=== PATIENT | female | born 1930 | race Caucasian/White ===

== ENCOUNTER 2017-04-18 18:25 | Emergency (ER) | payer MEDICARE ==
[2017-04-18 20:21] LABS: #Eosinphils 0.2 thou/uL (0.0-0.7); #Lymphocytes 1.4 thou/uL (1.20-3.40); #Monocytes 0.5 thou/uL (0.11-0.59); %Basophils 0.1 % (0.0-1.0); %Eosinophils 3.2 % (0.0-10.0); %Lymphocytes 19.7 % (21.0-51.0); %Monocytes 7.3 % (0.0-10.0); Hematocrit 43.2 % (36.0-47.0); Mean Platelet Volume 6.8 fL (7.4-10.4); Red Blood Cell (RBC) Count 4.66 mill/uL (4.20-5.40); White Blood Cell (WBC) Count 7.2 thou/uL (4.8-10.8)
[2017-04-18 20:27] LABS: PTT 27.2 SEC (22.9-36.1)
[2017-04-18 20:36] LABS: ALT (SGPT) 12 U/L (8-55); AST (SGOT) 26 U/L (5-34); Alkaline Phosphatase 94 U/L (40-150); Anion Gap 12 mmol/L (10-20); BUN (Urea Nitrogen) 16 mg/dL (9.8-20.1); Bilirubin, Total 0.3 mg/dL (0.2-1.2); Calc. Creatinine Clearance 0 mL/min (70-130); Calcium 9.8 mg/dL (7.8-10.44); Carbon Dioxide 30 mmol/L (23-31); Chloride 103 mmol/L (98-107); Estimated GFR-MDRD 83; Globulin 3.7 g/dL (2.4-3.5); Protein, Total 7.6 g/dL (6.0-8.3)
--- NOTE | 2017-04-18 20:44 | CT ---
CT OF BRAIN PERFORMED WITHOUT CONTRAST ENHANCEMENT: History: Head injury status post fall. Comparison: 02-02-17 FINDINGS: There is generalized ventricular and sulcal prominence. There is decreased attenuation of the perive ntricular white matter consistent with some chronic white matter change. There is no signs of interc erebral hemorrhage or extraaxial fluid collection. The mastoid air cells and visualized sinuses are clear. IMPRESSION: No acute intracranial abnormalities. POS: [facility]
--- NOTE | 2017-04-18 20:47 | RAD ---
PORTABLE CHEST: History: Fall. Comparison: 12-22-16 FINDINGS: Heart size is enlarged. There are atherosclerotic changes of the aorta and chronic lung changes. Hia wily hernia is present. The bones are demineralized. IMPRESSION: Cardiomegaly with chronic lung change. POS: [facility]
--- NOTE | 2017-04-18 20:58 | RAD ---
AP PELVIS: History: Fall with pelvic pain. Comparison: CT 12-22-16 FINDINGS: Deformity to the symphysis region appears old. There are no signs of any acute fractures of the bony pelvic ring. Vertebroplasty changes are noted in the lower lumbar spine. IMPRESSION: No evidence of any acute fracture. POS: [facility]
[2017-04-18 22:36] LABS: Bilirubin Negative (Negative); Blood, Urine Small (Negative); Glucose, Urine (Dipstick) Negative (Negative); Ketone, Urine Trace mg/dL (Negative); Nitrite Negative (Negative); Protein, Urine (Dipstick) Negative (Neg-Trace)
[2017-04-18 22:39] LABS: Bacteria/HPF Rare-Few HPF (None Seen); Hyaline Casts/LPF 0-3 HYALINE CAST LPF (0-3 Hyaline); WBC/HPF 0-3 HPF (0-3)
[2017-04-18] MEDS ORDERED: Adacel (T-DAP) 0.5 ML VIAL ONE (23:08)
== END 2017-04-18 23:55 | disposition home or self-care (01) ==
LOC: ERS 18:25
DX: S00.12XA Contusion of left eyelid and periocular area, initial encounter (principal); S40.012A Contusion of left shoulder, initial encounter; F03.90 Unspecified dementia, unspecified severity, without behavioral disturbance, psychotic disturbance, mood disturbance, and anxiety; M19.90 Unspecified osteoarthritis, unspecified site; Z86.73 Personal history of transient ischemic attack (TIA), and cerebral infarction without residual deficits; Z79.82 Long term (current) use of aspirin; W19.XXXA Unspecified fall, initial encounter
CPT/HCPCS: 70450; 71010; 72170; 80053; 81003; 81015; 85025; 85610; 85730; 87086; 90471; 90715; 93005; 96360; 96361

== ENCOUNTER 2017-09-03 06:10 | Emergency (ER) | payer MEDICARE ==
--- NOTE | 2017-09-03 07:47 | CT ---
PRELIMINARY REPORT/[facility]/EMERGENCY AFTER HOURS PROCEDURE: EXAM: CT Head Without Intravenous Contrast CLINICAL HISTORY: 87 years old, female; Injury or trauma; Fall; Initial encounter; Blunt trauma (contusions or hematoma s); Patient HX: Additional history obtained from ems, f87 presents to ed for fall. Ems reports unwitn essed fall and reports pt was found in the hallway at the assisted. Ems reports pt originally seth d she fell out of a chair and then later said she fell out of bed. Ems reports pt complained of right lower leg pain. Ems reports pt is not on blood thinners and reports HX of dementia. Pt reports she d oesn't remember falling. Pt reports right sided chest pain. TECHNIQUE: Axial computed tomography images of the head/brain without intravenous contrast. COMPARISON: No relevant prior studies available. FINDINGS: No definite acute skull fracture. Moderate fluid/opacity right maxillary and right frontal sinuses. Included paranasal sinuses otherwise appear essentially clear. No acute intracranial hemorrhage or mass effect. Ventricle size is normal for age. There is relatively symmetrical decreased attenuation in the periventricular white matter, likely fro m microvascular disease. No definite acute infarct by CT. MRI could be more sensitive/specific for an acute infarct if clinically indicated. IMPRESSION: No acute intracranial bleed or mass effect. Changes of microvascular disease. No definite acute infarct by CT, see above. Paranasal sinus findings as discussed above. Thank you for allowing us to participate in the care of your patient. Dictated and Authenticated by: Justo Thompson MD 09/03/2017 7:16 AM Central Time ([place] & [place]) FINAL REPORT NONCONTRAST HEAD CT: HISTORY: Trauma. Pain. COMPARISON: 04/18/17. TECHNIQUE: Noncontrast head CT is performed from the skull base to the skull vertex. FINDINGS: This report is in agreement with the preliminary report by [facility]. No intracranial posttraumatic sequel ae. There are chronic small-vessel ischemic changes of the white matter. There is a right frontal s calp hematoma. POS: [facility]
--- NOTE | 2017-09-03 08:01 | RAD ---
RIGHT ELBOW 4 VIEWS: HISTORY: Trauma. Pain. COMPARISON: None. FINDINGS: Mild bone demineralization. No joint effusion. No fracture or malalignment. IMPRESSION: No fracture. POS: [facility]
--- NOTE | 2017-09-03 08:04 | RAD ---
RIGHT KNEE 4 VIEWS: Date: 09/03/17 HISTORY: Trauma. Pain. COMPARISON: None. FINDINGS: Mild bone demineralization. Mild degenerative change at the patellofemoral compartment and lateral/me dial compartments. No fractures. There is diffuse bone demineralization. IMPRESSION: 1. No fracture. 2. Diffuse bone demineralization. 3. Mild tricompartmental degenerative change. POS: [facility]
--- NOTE | 2017-09-03 08:28 | RAD ---
ONE VIEW CHEST: HISTORY: Trauma. Pain. COMPARISON: 04/18/17. FINDINGS: Atherosclerosis of the aorta. Normal cardiac silhouette. Chronic changes in the lung parenchyma. T here is diffuse bone demineralization. No pneumothorax. IMPRESSION: 1. No acute cardiopulmonary process. 2. Atherosclerosis. POS: [facility]
== END 2017-09-03 08:28 | disposition home or self-care (01) ==
LOC: ERS 06:10
DX: S00.83XA Contusion of other part of head, initial encounter (principal); S50.01XA Contusion of right elbow, initial encounter; S80.01XA Contusion of right knee, initial encounter; Z79.899 Other long term (current) drug therapy; Z86.73 Personal history of transient ischemic attack (TIA), and cerebral infarction without residual deficits; W07.XXXA Fall from chair, initial encounter
CPT/HCPCS: 70450; 71045

== ENCOUNTER 2018-01-13 16:03 | Inpatient (IN) | payer MEDICARE ==
[2018-01-13] MEDS ORDERED: Fentanyl 100 MCG/2 ML VIAL ONE ×2 (16:34→21:32)
--- NOTE | 2018-01-13 17:10 | CT ---
CT OF THE BRAIN WITHOUT CONTRAST 01/13/18 COMPARISON: 09/03/17 HISTORY: Fall with head trauma. TECHNIQUE: Multiple contiguous axial images were obtained in a CT of the brain without contrast. FINDINGS: Cerebral atrophy is seen. There are scattered hypodensities in the subcortical and periventricular wh ite matter, likely secondary to small vessel ischemic disease. No large confluent infarction is seen. There is no evidence of hydrocephalus, intracranial hemorrhage, or extra-axial fluid collection. The calvarium and overlying soft tissues are unremarkable. The visualized paranasal sinuses and masto id air cells are well aerated. IMPRESSION: No evidence of acute intracranial abnormality. POS: [facility]
--- NOTE | 2018-01-13 17:59 | RAD ---
TWO VIEWS OF THE RIGHT HIP 01/13/18 COMPARISON: None. HISTORY: Fall with right hip pain. FINDINGS: Two views of the right hip shows an intertrochanteric fracture of the right femur which is moderately displaced and comminuted. No dislocation of the femoral head is seen. Surrounding soft tissue swelli ng is seen. Vascular calcifications are present. IMPRESSION: Intertrochanteric right femur fracture. POS: [facility]
--- NOTE | 2018-01-13 18:01 | RAD ---
THREE VIEWS RIGHT ANKLE: 01/13/18 HISTORY: Trauma. COMPARISON: 09/07/16. FINDINGS: Frontal projections are limited due to overlying artifact. Osseous detail is limited due to overlying artifact as well as diffuse osteopenia. There is no dislocation and no obvious fracture is appreciat ed. IMPRESSION: Limited exam due to osteopenia and overlying structures on the AP and oblique pprojections, but no ob vious acute osseous abnormality is appreciated. POS: [facility]
--- NOTE | 2018-01-13 18:02 | RAD ---
FOUR VIEWS OF THE RIGHT KNEE: 01/13/18 COMPARISON: 09/03/17. HISTORY: Fall with right knee pain. FINDINGS: Four views of the right knee shows diffuse osteopenia. There is no evidence of fracture or dislocatio n. No knee effusion is seen. vascular calcifications are seen posterior to the knee. IMPRESSION: No evidence of acute osseous abnormality. POS: [facility]
[2018-01-13 18:07] LABS: #Basophils 0.1 thou/uL (0.0-0.2); #Eosinphils 0.1 thou/uL (0.0-0.7); #Lymphocytes 1.2 thou/uL (1.20-3.40); #Monocytes 0.5 thou/uL (0.11-0.59); #Neutrophils 11.2 thou/uL (1.40-6.50); %Basophils 0.4 % (0.0-1.0); %Eosinophils 0.4 % (0.0-10.0); %Lymphocytes 9.4 % (21.0-51.0); %Monocytes 3.5 % (0.0-10.0); %Neutrophils 86.2 % (42.0-75.0); Hemoglobin 12.9 g/dL (12.0-16.0); Mean Corpuscular HGB CONC 32.6 g/dL (32.0-36.0); Mean Corpuscular Hemoglobin 30.9 pg (27.0-31.0); Mean Corpuscular Volume 94.6 fL (78.0-98.0); Platelet Count 318 thou/uL (130-400); RBC Distribution Width 12.4 % (11.5-14.5); Red Blood Cell (RBC) Count 4.16 mill/uL (4.20-5.40)
[2018-01-13 18:28] LABS: PTT 25.5 SEC (22.9-36.1)
[2018-01-13 18:35] LABS: ALT (SGPT) 8 U/L (8-55); AST (SGOT) 18 U/L (5-34); Albumin 3.8 g/dL (3.4-4.8); Alkaline Phosphatase 48 U/L (40-150); Anion Gap 14 mmol/L (10-20); BUN (Urea Nitrogen) 16 mg/dL (9.8-20.1); Bilirubin, Total 0.6 mg/dL (0.2-1.2); CKMB 3.1 ng/mL (0-6.6); Calc. Creatinine Clearance 0 mL/min (70-130); Calcium 9.5 mg/dL (7.8-10.44); Carbon Dioxide 28 mmol/L (23-31); Chloride 103 mmol/L (98-107); Estimated GFR-MDRD Greater than 90; Globulin 2.6 g/dL (2.4-3.5); Glucose 114 mg/dL (83-110); Protein, Total 6.4 g/dL (6.0-8.3); Sodium 141 mmol/L (136-145); Troponin I 0.264 ng/mL (< 0.028)
--- NOTE | 2018-01-13 19:34 | RAD ---
PORTABLE AP CHEST X-RAY 01/13/18 HISTORY: Syncope. COMPARISON: 09/03/17. FINDINGS: There is diffuse osteopenia. This examination is obtained with the patient in kyphotic positioning an d severe rotation which limits evaluation of the mediastinal structures. There are linear densities a t the right lung base which may be related to atelectasis and/or scarring. The left lung is grossly c lear. Vertebroplasty changes are again seen involving the lower lumbar spine. There is diffuse osteop enia noted. There is calcification seen in the subacromial space also noted on prior exam and could b e related to calcific peritendinitis. Surgical clips overlie the right upper quadrant. IMPRESSION: 1. Limited examination due to severe kyphotic positioning and patient rotation. There is atelect asis versus scarring at the right lung base, but no definite acute cardiopulmonary process is appreci ated. 2. Diffuse osteopenia. POS: [facility]
[2018-01-13] MEDS ORDERED: CEFAZOLIN/Water 2 GM/20 ML SYRINGE SLOW IVP SCH (20:00)
[2018-01-13 21:31] LABS: Troponin I 1.086 ng/mL (< 0.028)
[2018-01-13 23:32] VITALS: BMI 18.1
--- NOTE | 2018-01-14 01:45 | HP ---
DATE OF ADMISSION: 01/13/2018 ADMITTING PHYSICIAN: Dr. Carbajal. CONSULTING PHYSICIAN: Dr. Major. HISTORY OF PRESENT ILLNESS: Ms. Iyer is an 87-year-old female who was previously on hospice for e nd-stage Alzheimer's dementia. She was found down beside her bed in a [facility]. She was transported to [facility] via EMS. Workup in the emergency departm ent identified a right intertrochanteric femur fracture. She also had elevated troponin and had epis ode of hypotension which responded to fluid in the emergency department. Trauma services was consult ed to admit. Dr. Major was consulted by ER physician. ALLERGIES: No known drug allergies. CURRENT MEDICATIONS: It should be noted that current medications are prescribed by hospice. They are as follows: 1. Colace 100 mg b.i.d. 2. Dulcolax 10 mg q.72 hours p.r.n. 3. Fluticasone 2 sprays p.r.n. 4. Levsin 0.125 mg q.4 hours p.r.n. 5. Lorazepam 2 mg q.2 hours p.r.n. 6. Lorazepam 0.5 mg p.o. q.6 hours. 7. Omeprazole 20 mg daily. 8. Nitroglycerin 0.3 mg p.r.n. 9. Systane Balance 0.6% eyedrops 1 drop b.i.d. 10. Tylenol 500 mg 1-2 q.6 hours p.r.n. 11. Tylenol #3 one tab 3 times daily. 12. Zofran 8 mg q.4 hours. PAST MEDICAL HISTORY: 1. Dementia. 2. Non-Hodgkin lymphoma. 3. Transient ischemic attacks. 4. Chronic back pain. 5. Diverticulosis. PAST SURGICAL HISTORY: 1. Exploratory laparoscopy with lysis of adhesions and intra-abdominal abscess drainage on 7. 2. Cholecystectomy. 3. Kyphoplasty x2. SOCIAL HISTORY: Tobacco none. Alcohol none. Drug use none. LABORATORY STUDIES: CBC: WBC 13.0, RBC 4.16, hemoglobin 12.9, hematocrit 39.4, platelets 318,000. Coags: PT 13.0, INR 1.0. Chemistry: Sodium 141, potassium 4.0, chloride 103, carbon dioxide 28, BU N 16, creatinine 0.61, glucose 114, calcium 9.5, total bilirubin 0.6, AST 18, ALT 8, alkaline phospha tase 48, CK-MB 3.1, troponin 0.264. DIAGNOSTIC IMAGING: Right intertrochanteric femur fracture. REVIEW OF SYSTEMS: Unable to complete due to history of dementia. PHYSICAL EXAMINATION: VITAL SIGNS: Blood pressure 121/60, pulse 79, respirations 17, O2 sat 99%. GENERAL: Elderly, frail-appearing female in no acute distress. HEENT: Atraumatic, normocephalic. CARDIOVASCULAR: Regular rate and rhythm. RESPIRATORY: Bilateral breath sounds clear. No respiratory distress. ABDOMEN: Soft, nontender, nondistended. MUSCULOSKELETAL: Pain to right hip and right upper thigh with movement of right leg. EXTREMITIES: 2+ pulses all extremities. NEUROLOGIC: GCS 14, oriented to name only. SKIN: Warm and dry, normal in color. ASSESSMENT: 1. Status post ground level fall. 2. Right intertrochanteric hip fracture. 3. History of Alzheimer dementia, currently on hospice care. PLAN: 1. Admit to telemetry floor for cardiac monitoring. 2. Serial cardiac enzymes. 3. Consult to Dr. Major. Discussed at length with Dr. Major. Dr. Major recommends taking patient to the OR for fixation of hip for pain control. Family is in agreement and wishes to proceed with the surgery; however, they do wish to return patient to hospice care on discharge. 4. The patient is DNR. This was discussed at length with family and hospice provider. 5. IV analgesia, IV maintenance fluids. 6. N.p.o. after midnight. 7. SCDs for DVT prophylaxis. 8. Pepcid for gastritis prophylaxis. The patient was reviewed with Dr. Carbajal at the time of admission. Dr. Carbajal in agreement with yovany galvan.
[2018-01-14] MEDS: Sodium Chloride 0.9% 1,000 ML IV SCH ×2 (02:00→16:32)
[2018-01-14] MEDS ORDERED: Ketorolac Tromethamine 30 MG/ML VIAL IVP SCH (02:00)
[2018-01-14] MEDS ORDERED: Dextrose 5% in Water 1,000 ML IV PRN (02:33)
[2018-01-14] MEDS ORDERED: Dextrose 50% Abboject 50 ML SYRINGE SLOW IVP PRN (02:33)
[2018-01-14] MEDS: Acetaminophen 1,000 MG in Premix Bag 1 BAG IVPB SCH ×3 (02:35→15:29)
[2018-01-14 06:30] LABS: Anion Gap 14 mmol/L (10-20); BUN (Urea Nitrogen) 17 mg/dL (9.8-20.1); Calc. Creatinine Clearance 50 mL/min (70-130); Calcium 8.4 mg/dL (7.8-10.44); Carbon Dioxide 22 mmol/L (23-31); Chloride 111 mmol/L (98-107); Estimated GFR-MDRD Greater than 90; Glucose 108 mg/dL (83-110); Magnesium 1.4 mg/dL (1.6-2.6); Phosphorus 3.8 mg/dL (2.3-4.7); Potassium 4.1 mmol/L (3.5-5.1); Sodium 143 mmol/L (136-145)
[2018-01-14 06:37] LABS: Troponin I 1.984 ng/mL (< 0.028)
[2018-01-14] MEDS: Senokot S 8.6-50 MG TAB PO SCH ×2 (08:12→21:57)
[2018-01-14] MEDS: Famotidine/PF 20 mg/2ml Vial SLOW IVP SCH (08:13)
[2018-01-14] MEDS: Bisacodyl 10 MG SUPP PR SCH (08:14)
--- NOTE | 2018-01-14 08:36 | CON ---
DATE OF CONSULTATION: 01/13/2018 REQUESTING PHYSICIAN: Dr. Justo Carbajal PRINCIPAL ORTHOPEDIC COMPLAINT: Right intertrochanteric femur fracture. HISTORY OF PRESENT ILLNESS: Ms. Iyer is an 87-year-old lady who was examined in the emergency leo with her daughters at bedside. The patient has end-stage Alzheimer dementia. Earlier on the day o f admission, she was found down at her bedside in alf hospice. Upon transport to [facility], x-rays of the hip were obtained that showed an intertrochanteric femur fracture with extension b elow the lesser trochanter. During the course of the emergency room visit, she was also found to hav e elevated troponins. The patient was subsequently admitted to the Trauma Service and orthopedic con sultation requested. PAST MEDICAL HISTORY: Remarkable for Alzheimer dementia, non-Hodgkin lymphoma, a history of TIAs, ch ronic back pain, and diverticulosis. PAST SURGICAL HISTORY: Includes exploratory laparotomy, cholecystectomy as well as prior kyphoplasti es. MEDICATIONS: Colace, Dulcolax, lorazepam, omeprazole, nitroglycerin on a p.r.n. basis, Tylenol #3 oc casionally on a p.r.n. basis, Zofran, Levsin, and Tylenol. ALLERGIES: None known. SOCIAL HISTORY: She denies alcohol, tobacco or drug use. FAMILY HISTORY: Noncontributory. REVIEW OF SYSTEMS: No recent fevers, chills or sweats. No current chest pain or shortness of breath . Denies numbness or tingling in the lower extremities. PHYSICAL EXAMINATION: VITAL SIGNS: She is found to have a blood pressure at the time of my examination of 95/50 with a hea rt rate of 85 and respiratory rate of 20. HEENT: Atraumatic, normocephalic. HEART: Shows a regular rate and rhythm. RESPIRATORY: Shows shallow, but clear breath sounds bilaterally. Chest wall is nontender. ABDOMEN: Flat, nontender. Pelvis is stable to compression. EXTREMITIES: Remarkable for bilateral upper extremities that are atraumatic at shoulder, elbow, wris t and hand. A left lower extremity is atraumatic at hip, knee, ankle and foot. The right lower extr emity was held in flexion and there is some minor shortening. Distally, she is able to wiggle her to es. The knee, ankle and foot on this involved right side do appear atraumatic. LABORATORY: She is found to have a white count of 13, hematocrit of 39.4 and 318,000 platelets. Her INR is 1.0. X-rays of right hip show an intertrochanteric femur fracture with a large butterfly fra gment involving the lesser trochanter extending below the lesser trochanter. ASSESSMENT: The patient is status post ground level fall sustaining right intertrochanteric femur fr acture. The patient also with history of severe end-stage dementia. PLAN: At this time the patient will be admitted to the Trauma Service. She will undergo a preoperat sherrie workup including cardiac enzymes. Once cleared for surgery, we will proceed with stabilization o f the fracture as a means of controlling pain. I have had a very thorough discussion with patient's daughters regarding expectations, as well as the risks associated with this fracture. We have discus sed the potential nonoperative management. However, they are uncomfortable with the degree of pain t he patient is currently in. We have also discussed the fact that at the time of surgery she certainl y will have increased cardiac risk for the events such as . At this point in time, they feel co mfortable proceeding to the operating room in hopes of stabilizing the fracture and providing pain ma nagement through the stabilization of the fracture. I have discussed with family risks and benefits of surgery. Risks include, but are not limited to bleeding, infection, nerve injury, DVT, PE, cardia c event, loss of limb or life. They appear comfortable with our discussion and plan.
[2018-01-14] MEDS ORDERED: CEFAZOLIN/Water 2 GM/20 ML SYRINGE ONE (10:28)
[2018-01-14] MEDS ORDERED: Ketamine 50 MG/ML VIAL ONE (12:07)
[2018-01-14] MEDS ORDERED: Esmolol 100 MG/10 ML VIAL ONE (13:34)
[2018-01-14] MEDS ORDERED: Promethazine HCl 25 MG/ML VIAL SLOW IVP PRN ×2 (14:10→14:47)
[2018-01-14] MEDS ORDERED: Ondansetron HCl/PF 4 MG/2 ML Vial IVP PRN ×2 (14:10→14:47)
[2018-01-14] MEDS ORDERED: Promethazine HCl 25 MG/ML VIAL IM PRN ×2 (14:10→14:47)
[2018-01-14] MEDS ORDERED: Fentanyl 100 MCG/2 ML VIAL ONE (14:19)
--- NOTE | 2018-01-14 15:50 | RAD ---
FIVE VIEWS FLUOROSCOPIC VIEWS OF THE RIGHT FEMUR 01/14/18 INDICATION: ORIF of the right femur. FINDINGS: Submitted images demonstrate placement of a cephalomedullary device across the right intertrochanteri c hip fracture. Fracture alignment is near anatomic. The instrumentation projects in the expected pos ition. Total fluoroscopic time is 73.9 seconds. Total exposure 4.6 0 mGy. IMPRESSION: ORIF right hip fracture. POS: [facility]
[2018-01-14] MEDS ORDERED: Magnesium Sulfate 4 GM in Sodium Chloride 0.9% 250 ML 250 ML IVPB SCH (17:30)
[2018-01-14 17:47] LABS: #Lymphocytes 1.2 thou/uL (1.20-3.40); #Neutrophils 8.6 thou/uL (1.40-6.50); %Eosinophils 0.1 % (0.0-10.0); %Lymphocytes 11.1 % (21.0-51.0); %Monocytes 9.4 % (0.0-10.0); %Neutrophils 79.3 % (42.0-75.0); Hemoglobin 7.6 g/dL (12.0-16.0); Mean Corpuscular HGB CONC 33.1 g/dL (32.0-36.0); Mean Corpuscular Hemoglobin 31.5 pg (27.0-31.0); Mean Platelet Volume 6.6 fL (7.4-10.4); Platelet Count 227 thou/uL (130-400); RBC Distribution Width 12.5 % (11.5-14.5); Red Blood Cell (RBC) Count 2.41 mill/uL (4.20-5.40); White Blood Cell (WBC) Count 10.8 thou/uL (4.8-10.8)
[2018-01-14] MEDS ORDERED: Acetaminophen/Codeine 30-300mg Tablet PO PRN (18:35)
--- NOTE | 2018-01-14 18:43 | OP ---
DATE OPERATION: 01/14/2017 OPERATION: Intramedullary nail fixation of right subtrochanteric femur fracture. PREOPERATIVE DIAGNOSIS: Right subtrochanteric femur fracture. ANESTHESIA: General. SURGEON: Dustin Vazquez M.D. IMPLANTS: Synthes trochanteric nail size 400 x 11 mm with helical blade and cross lock screw. INDICATIONS: Ms. Iyer is an 87-year-old female who has fallen. She suffered a subtrochanteric fr acture of the right femur. She was indicated for intramedullary nail fixation to restore anatomic al ignment and promote healing. Risks have been reviewed in detail. She elected to proceed with the op eration. DESCRIPTION OF PROCEDURE: Ms. Iyer was identified in the preoperative holding area. Her correct extremity was marked. She was carried to the operating room. She was positioned supine. General an esthesia was induced. A multidisciplinary timeout was performed. The right lower extremity was prep ped and draped in sterile fashion. We began the procedure with evaluation of the fracture under intraoperative x-ray. After pulling tra ction and rotation, we reduced the fracture into an anatomic position. At this point, we proceeded b y making a small incision proximal to the greater trochanter. We then inserted a guidewire. We over drilled the wire. At this point, we proceeded with placement of a long ball-tip guidewire to the kne e. We checked intraoperative x-rays for positioning. We then over reamed the guidewire up to a size 12 reamer. Next, we placed an 11 mm femoral nail. This was stabilized with a helical blade proxima lly using x-ray guidance. We then placed a distal cross lock screw. We thoroughly irrigated with co pious lavage. We then closed the wounds with 0 Vicryl suture, 2-0 Vicryl suture and elizabeth. A ster ile dressing was applied. The patient was taken to the recovery room in good condition without compl ication.
[2018-01-14] MEDS ORDERED: Morphine IR 10 MG/5 ML UDCUP SL PRN (18:57)
[2018-01-14] MEDS ORDERED: Lorazepam 1 MG TAB PO PRN (18:57)
--- NOTE | 2018-01-14 20:48 | PRG ---
DATE OF SERVICE: 01/14/2018 SUBJECTIVE: The patient is hospital day #2 status post presumed fall. She [facility] She was transported to our facility and underwent evaluation and exa mination and noted to have a right intertrochanteric femur fracture. Overnight, she also had troponi ns that showed that she had slight elevations otherwise normal EKG. This is consistent with a non-ST elevated myocardial infarction. The patient is already on hospice. She is a DNR and less than [facility] and after an extensive discussion with the family, it was decided that pursuing a cardiac clearance for her procedure would not change her need for the procedure for comfort reasons. The faye batista agreed with this and the patient was cleared to go to the operating room to undergo her orthopedi c procedure. OBJECTIVE: VITAL SIGNS: Temperature is 99.7, heart rate 100, blood pressure 109/60, respirations 17, oxygen sat uration 94% on room air. GENERAL: The patient is sleeping in bed. Per the daughter's instruction, we did not awaken her. LUNGS: Clear to auscultation with moderate inspiratory and expiratory effort. HEART: Regular rate and rhythm. ABDOMEN: Soft, flat, nontender with hypoactive bowel sounds. EXTREMITIES: Neurovascularly intact x4. LABORATORY DATA: This morning, sodium 143, potassium 4.1, chloride 111, CO2 22, BUN 17, creatinine 0 .56, glucose 108, magnesium 1.4, phosphorus 3.8. There are no radiographs to review this morning. ASSESSMENT AND PLAN: 1. Status post fall. 2. Status post right hip fracture, awaiting orthopedic procedure. PLAN: Will be to continue supportive care and postoperatively, we will move her to the surgical floo r and then likely within the next 1-2 days, she will be moved back to her prison facility. The evaluation and examination were done with Dr. Adams this morning during rounds.
[2018-01-14] MEDS ORDERED: Enoxaparin Sodium 30 MG/0.3 ML SYRINGE SC SCH (21:00)
[2018-01-14] MEDS: Lorazepam 2 MG/ML VIAL SLOW IVP PRN (21:42)
[2018-01-14] MEDS: Acetaminophen 1,000 MG in Premix Bag 1 BAG IVPB PRN (21:59)
[2018-01-15] MEDS: Sodium Chloride 0.9% 1,000 ML IV SCH ×2 (02:52→15:56)
[2018-01-15] MEDS: Lorazepam 2 MG/ML VIAL SLOW IVP PRN (03:09)
[2018-01-15 05:52] LABS: #Monocytes 1.1 thou/uL (0.11-0.59); #Neutrophils 7.9 thou/uL (1.40-6.50); %Basophils 0.1 % (0.0-1.0); %Eosinophils 0.1 % (0.0-10.0); %Lymphocytes 10.2 % (21.0-51.0); %Monocytes 11.3 % (0.0-10.0); %Neutrophils 78.4 % (42.0-75.0); Hemoglobin 8.3 g/dL (12.0-16.0); Mean Corpuscular Hemoglobin 31.3 pg (27.0-31.0); Mean Corpuscular Volume 91.9 fL (78.0-98.0); Mean Platelet Volume 6.8 fL (7.4-10.4); Platelet Count 182 thou/uL (130-400); RBC Distribution Width 12.7 % (11.5-14.5); Red Blood Cell (RBC) Count 2.64 mill/uL (4.20-5.40); White Blood Cell (WBC) Count 10.1 thou/uL (4.8-10.8)
[2018-01-15 06:28] LABS: Anion Gap 12 mmol/L (10-20); BUN (Urea Nitrogen) 23 mg/dL (9.8-20.1); Calc. Creatinine Clearance 46 mL/min (70-130); Calcium 7.9 mg/dL (7.8-10.44); Carbon Dioxide 22 mmol/L (23-31); Chloride 113 mmol/L (98-107); Estimated GFR-MDRD Greater than 90; Glucose 105 mg/dL (83-110); Magnesium 2.2 mg/dL (1.6-2.6); Phosphorus 2.4 mg/dL (2.3-4.7); Potassium 3.5 mmol/L (3.5-5.1); Sodium 143 mmol/L (136-145)
[2018-01-15] MEDS ORDERED: Enoxaparin Sodium 40 MG/0.4 ML SYRINGE SC SCH (09:00)
[2018-01-15] MEDS: Famotidine/PF 20 mg/2ml Vial SLOW IVP SCH (09:35)
[2018-01-15] MEDS: Bisacodyl 10 MG SUPP PR SCH (09:38)
[2018-01-15] MEDS: Senokot S 8.6-50 MG TAB PO SCH (09:48)
[2018-01-15] MEDS: Acetaminophen 1,000 MG in Premix Bag 1 BAG IVPB PRN (15:55)
[2018-01-15 16:08] VITALS: BP 131/77; TEMP 98
== END 2018-01-15 19:01 | DRG 480 ==
LOC: ERS 16:03 → 2NO 21:19 → SURG A 01-14 15:14 → SJJU 01-14 15:15
PROVIDERS: ADMIT Surgery; ATTEND Surgery
PROC: 0QS636Z Reposition Right Upper Femur with Intramedullary Internal Fixation Device, Percutaneous Approach (ICD-10-PCS; principal; 2018-01-14)
DX: S72.101A Unspecified trochanteric fracture of right femur, initial encounter for closed fracture (principal); I21.4 Non-ST elevation (NSTEMI) myocardial infarction; W01.0XXA Fall on same level from slipping, tripping and stumbling without subsequent striking against object, initial encounter; Y93.9 Activity, unspecified; Y92.9 Unspecified place or not applicable; Y99.9 Unspecified external cause status; Z66 Do not resuscitate; G30.9 Alzheimer's disease, unspecified; F02.80 Dementia in other diseases classified elsewhere, unspecified severity, without behavioral disturbance, psychotic disturbance, mood disturbance, and anxiety; Z86.73 Personal history of transient ischemic attack (TIA), and cerebral infarction without residual deficits; G89.29 Other chronic pain; M54.9 Dorsalgia, unspecified
CPT/HCPCS: 12001; 36415; 36430; 51702; 70450; 71045; 76001; 80048; 80053; 82553; 83735; 84100; 84484; 85025; 85610; 85730; 86850; 86900; 86901; 93005; 96361; 96374; 96376; C1713; C1769; G0390; J0131; J1885; J2060; J2270; J3010; J3475; J7050; P9016; S0028